=== PATIENT | male | born 1970 | race Caucasian/White ===

== ENCOUNTER 2021-04-07 04:34 | Day surgery (SDC) | payer BC ==
[2021-04-06 09:35] VITALS: BMI 32.7
[~2021-04-07 04:34] MED LIST: BUPIVACAINE HCL/PF 0.75% 10 ML VIAL NR ONE; IOHEXOL 180 MG/1 ML ML IJ ONE
[2021-04-07] MEDS ORDERED: LIDOCAINE HCL/PF 1% SDV 5ML VIAL ONE (07:52)
[2021-04-07] MEDS ORDERED: IOHEXOL 180 MG/1 ML ML IJ ONE (09:06)
[2021-04-07] MEDS ORDERED: BUPIVACAINE HCL/PF 0.75% 10 ML VIAL NR ONE (09:10)
[2021-04-07 13:28] VITALS: BP 142/90; PULSE 83; TEMP 99.5
== END 2021-04-07 09:30 | disposition home or self-care (01) ==
LOC: JASU-SURG 04:34
PROVIDERS: ATTEND Pain Medicine Pain Medicine
PROC: BR15YZZ Fluoroscopy of Thoracic Facet Joint(s) using Other Contrast (ICD-10-PCS; 2021-04-07)
PROC: 3E0T3BZ Introduction of Anesthetic Agent into Peripheral Nerves and Plexi, Percutaneous Approach (ICD-10-PCS; principal; 2021-04-07 09:00)
DX: M47.814 Spondylosis without myelopathy or radiculopathy, thoracic region (principal); I10 Essential (primary) hypertension
CPT/HCPCS: 76000-TC-FY

== ENCOUNTER 2021-05-01 05:22 | Day surgery (SDC) | payer BC ==
[2021-04-29 14:44] VITALS: BMI 32.4
[2021-05-01] MEDS ORDERED: LIDOCAINE HCL 1% PRESERVATIVE FREE - 30ML VIAL IJ ONE ×2 (10:20→10:25)
[2021-05-01] MEDS ORDERED: BUPIVACAINE HCL/PF 0.75% 10 ML VIAL NR ONE ×2 (10:20→10:29)
[2021-05-01] MEDS ORDERED: IOHEXOL 180 MG/1 ML ML IJ ONE (10:20)
[2021-05-01 11:26] VITALS: BP 132/86; PULSE 88; TEMP 97.8
== END 2021-05-01 10:58 | disposition home or self-care (01) ==
LOC: JASU-SURG 05:22
PROVIDERS: ATTEND Pain Medicine Pain Medicine
PROC: 3E0T33Z Introduction of Anti-inflammatory into Peripheral Nerves and Plexi, Percutaneous Approach (ICD-10-PCS; 2021-05-01)
PROC: 3E0T3BZ Introduction of Anesthetic Agent into Peripheral Nerves and Plexi, Percutaneous Approach (ICD-10-PCS; principal; 2021-05-01 09:30)
DX: M47.816 Spondylosis without myelopathy or radiculopathy, lumbar region (principal)
CPT/HCPCS: 76000-TC-FY

== ENCOUNTER 2021-08-25 07:44 | Day surgery (SDC) | payer BC ==
[2021-08-25 08:53] VITALS: BMI 31.5
[2021-08-25] MEDS ORDERED: LIDOCAINE 1% P/F 10 MG/ML VIAL INF ONE (09:24)
[2021-08-25 10:20] VITALS: BP 160/97; PULSE 94; TEMP 97.9
== END 2021-08-25 10:30 | disposition home or self-care (01) ==
LOC: JASU-SURG 07:44
PROVIDERS: ATTEND Pain Medicine Pain Medicine
PROC: BR15YZZ Fluoroscopy of Thoracic Facet Joint(s) using Other Contrast (ICD-10-PCS; 2021-08-25)
PROC: 3E0T3BZ Introduction of Anesthetic Agent into Peripheral Nerves and Plexi, Percutaneous Approach (ICD-10-PCS; principal; 2021-08-25 09:30)
DX: M47.814 Spondylosis without myelopathy or radiculopathy, thoracic region (principal); I10 Essential (primary) hypertension
CPT/HCPCS: 76000-TC-FY